=== PATIENT | female | born 1990 | race Caucasian/White ===

== ENCOUNTER → 2016-09-29 09:11 | Day surgery (SDC) | payer BC, OTHER ==
[~2016-09-29 09:11] MED LIST: Acetaminophen TAB* 325 MG PO PRN; Bacitracin OINTMENT* 1 TUBE ONE; Buffered Lidocaine 0.9% SYRIN* 5 ML/SYR SYRINGE INTRADERM ONE; Buffered Lidocaine 0.9% SYRIN* 5 ML/SYR SYRINGE ONE; Bupivacaine 0.5% W/EPI SDV* 10 ML VIAL INJ ONE; Chloroprocaine 2%* 20 ML VIAL ONE; Dexamethasone IV* 4 MG/ML 1 ML (4 MG) ONE; DiMENhydriNATE IV* 50 MG/ML VIAL IV PUSH PRN; Famotidine IV* 10 MG/ML 2 ML (20 mg) IV ONE; Famotidine IV* 10 MG/ML 2 ML (20 mg) ONE; Ketorolac INJ* 30 MG/ML 1 ML VIAL ONE; Lidocaine 2% PF * 5 ML VIAL ONE; Midazolam* 1 MG/ML 5 ML VIAL (5 MG) ONE; Ondansetron INJ* 2 MG/ML VIAL ONE; Propofol* 10 MG/ML 20 ML BTL IV PUSH ONE; fentaNYL* 50 MCG/ML 2 ML VIAL (100 MCG VIAL) IV PRN; fentaNYL* 50 MCG/ML 2 ML VIAL (100 MCG VIAL) ONE; oxyCODONE TAB* 5 MG TAB PO PRN
[2016-09-29 09:21] LABS: Manual Entry Verification JEA0012; UR Preg Internal Control QC Line Present
[2016-09-29 13:38] VITALS: BP 113/60
--- NOTE | 2016-09-30 09:56 | OP ---
OPERATIVE REPORT: DATE OF OPERATION: 09/29/16 DATE OF : 89 SURGEON: Celso Barrett MD ANESTHESIA: Spinal. PRE-OP DIAGNOSIS: Vulvar cyst. POST-OP DIAGNOSIS: Vulvar cyst. OPERATIVE PROCEDURE: Excision of vulvar cyst. COMPLICATIONS: None. ESTIMATED BLOOD LOSS: Minimal. DESCRIPTION OF PROCEDURE: The patient identified and procedure identified as an excision of vulvar cyst. The patient was taken to the operating room and prepped and draped in the usual fashion in th e dorsal lithotomy position under spinal anesthesia. An incision was made over the area of indurati on and carried down until the area could be brought up through the incision. It was surrounded by f at tissue. Using the Metzenbaum and Adson pickup, it is slowly excised. Bovie was used for hemosta sis. The area was excised until all the firm area was removed. 3- 0 Polysorb simple were placed to close the space and skin was closed using 3-0 Polysorb in a simple fashion. The skin was then covered with bacitracin ointment. All sponge and instrument counts were correct. The patient retur linda to the recovery room in stable condition. [id number]/[facility] #: [id number]
== END | disposition home or self-care (01) ==
LOC: OR 09:11
PROVIDERS: ATTEND Obstetrics & Gynecology
PROC: 0UBMXZZ Excision of Vulva, External Approach (ICD-10-PCS; principal; 2016-09-29 10:45)
DX: N90.7 Vulvar cyst (principal); Z32.02 Encounter for pregnancy test, result negative
CPT/HCPCS: 81025; 88304; A9270-GY; J1100; J1885; J2250; J2400; J2405; J2704; J3010

== ENCOUNTER 2017-06-04 01:22 | Inpatient (IN) | payer OTHER ==
[2017-06-04 04:34] LABS: ABS Basophils 0 10^3/ul (0-0.2); ABS Eosinophils 0 10^3/ul (0-0.6); ABS Lymphocytes 2.3 10^3/ul (1.0-4.8); ABS Monocytes 0.8 10^3/ul (0-0.8); ABS Neutrophils 9.9 10^3/ul (1.5-7.7); ABS Nucleated RBC 0 10^3/ul; Eosinophil % 0.3 % (0-6); Hematocrit 37 % (35-47); Hemoglobin 12.3 g/dl (12.0-16.0); Lymphocyte % 17.4 % (25-47); Mean Corpuscular HGB Conc 34 g/dl (31-36); Mean Corpuscular Hemoglobin 30 pg (27-31); Mean Corpuscular Volume 89 fL (80-97); Mean Platelet Volume 8 um3 (7.4-10.4); Nucleated Red Blood Cells % 0; Platelet Count 250 10^3/ul (150-450); Red Blood Count 4.11 10^6/ul (4.0-5.4); Red Cell Distribution Width 14 % (10.5-15); White Blood Count 13.1 10^3/ul (3.5-10.8)
[2017-06-04] MEDS ORDERED: Ondansetron ODT TAB* 4 MG PO ONE (05:22)
[2017-06-04] MEDS ORDERED: Ondansetron INJ* 2 MG/ML VIAL ONE (05:25)
[2017-06-04] MEDS ORDERED: Ondansetron ODT TAB* 4 MG ONE (05:31)
[2017-06-04] MEDS ORDERED: OBEPIDURAL* 250 ML EPIDURAL ONE (05:48)
[2017-06-04] MEDS ORDERED: Famotidine TAB* 20 MG PO PRN (06:22)
[2017-06-04] MEDS ORDERED: EPHEDrine (Pressors)* 50 MG/ML VIAL IV PUSH PRN ×2 (06:22)
[2017-06-04] MEDS ORDERED: Phenylephrine IV* 40 MCG/ML 10 ML SYRINGE IV PUSH PRN ×2 (06:22)
[2017-06-04] MEDS ORDERED: Sodium Citrate/Citric Acid* 15 ML UDC PO PRN (06:22)
[2017-06-04] MEDS ORDERED: OBEPIDURAL* 250 ML EPIDURAL SCH (07:00)
[2017-06-04] MEDS ORDERED: Oxytocin in LR* 20 UNITS/1,000 ML BAG IVPB ONE (11:34)
[2017-06-04] MEDS ORDERED: Misoprostol TAB* 200 MCG PR ONE (12:11)
[2017-06-04] MEDS ORDERED: Acetaminophen TAB* 325 MG PO PRN (12:11)
[2017-06-04] MEDS ORDERED: Dibucaine 1% 28.35 GM TUBE PR PRN (12:11)
[2017-06-04] MEDS: Ibuprofen TAB* 600 MG PO PRN ×2 (12:31→18:32)
[2017-06-04] MEDS ORDERED: Oxytocin in LR* 20 UNITS/1,000 ML BAG IVPB SCH (13:00)
[2017-06-04] MEDS ORDERED: Ammonia Inhalant* 1 EA AMP ONE (14:24)
[2017-06-04] MEDS: Docusate CAP* 100 MG PO SCH ×2 (16:23→20:44)
[2017-06-04] MEDS: Witch Hazel PAD* JAR TOPICAL PRN (20:44)
[2017-06-05] MEDS: Ibuprofen TAB* 600 MG PO PRN ×4 (00:38→21:34)
[2017-06-05 08:23] LABS: Hematocrit 28 % (35-47); Hemoglobin 9.5 g/dl (12.0-16.0); Mean Corpuscular HGB Conc 34 g/dl (31-36); Mean Corpuscular Hemoglobin 31 pg (27-31); Mean Corpuscular Volume 89 fL (80-97); Mean Platelet Volume 7 um3 (7.4-10.4); Platelet Count 213 10^3/ul (150-450); Red Cell Distribution Width 14 % (10.5-15)
[2017-06-05] MEDS: Docusate CAP* 100 MG PO SCH ×3 (08:32→20:02)
[2017-06-05] MEDS: Ferrous Gluconate TAB* 324 MG TAB PO SCH ×2 (09:01→20:02)
[2017-06-06] MEDS: Ibuprofen TAB* 600 MG PO PRN ×2 (03:43→09:48)
[2017-06-06 08:02] VITALS: BP 109/57
[2017-06-06] MEDS: Docusate CAP* 100 MG PO SCH (08:36)
[2017-06-06] MEDS: Ferrous Gluconate TAB* 324 MG TAB PO SCH (08:36)
[2017-06-06] MEDS: Witch Hazel PAD* JAR TOPICAL PRN (09:48)
== END 2017-06-06 10:04 | disposition home or self-care (01) | DRG 774 ==
LOC: MCHOBOUT 01:22 → MCHOB 01:59
PROVIDERS: ADMIT Midwife; ATTEND Midwife
PROC: 10E0XZZ Delivery of Products of Conception, External Approach (ICD-10-PCS; principal; 2017-06-04)
PROC: 0DQR0ZZ Repair Anal Sphincter, Open Approach (ICD-10-PCS; 2017-06-04)
DX: O70.20 Third degree perineal laceration during delivery, unspecified (principal); O67.8 Other intrapartum hemorrhage; O72.0 Third-stage hemorrhage; D64.9 Anemia, unspecified; O90.81 Anemia of the puerperium; Z3A.39 39 weeks gestation of pregnancy; Z37.0 Single live birth
CPT/HCPCS: 36415; 85025; 85027; 86850; 86900; 86901; A9270-GY; J2405